=== PATIENT | female | born 1955 | race Caucasian/White ===

== ENCOUNTER 2022-04-05 10:32 | Outpatient (CLI) | payer MEDICARE, OTHER | END 2022-04-05 10:33 | disposition home or self-care (01) | LOC: CSHCP 10:32 | PROVIDERS: ATTEND Internal Medicine Critical Care Medicine | DX: R91.8 Other nonspecific abnormal finding of lung field (principal); J44.9 Chronic obstructive pulmonary disease, unspecified | CPT/HCPCS: 94060; 94726; 94729; 94760 ==

== ENCOUNTER 2022-05-24 09:03 | Outpatient (CLI) | payer OTHER ==
[~2022-05-24 09:03] MED LIST: Magnevist 469MG/ML 20 ML VIAL ONE
== END 2022-05-24 09:04 | disposition home or self-care (01) ==
LOC: CSHMRI 09:03
PROVIDERS: ATTEND Radiology Radiation Oncology
DX: C34.11 Malignant neoplasm of upper lobe, right bronchus or lung (principal); I69.398 Other sequelae of cerebral infarction; G93.89 Other specified disorders of brain
CPT/HCPCS: 70553

== ENCOUNTER 2022-05-29 17:59 | Inpatient (IN) | payer OTHER ==
[2022-05-29 18:09] VITALS: BMI 22.0
[2022-05-29] MEDS ORDERED: Morphine 4 MG/ML VIAL SLOW IVP SCH (19:15)
[2022-05-29] MEDS: Sodium Chloride 0.9% 1,000 ML IV SCH (20:00)
[2022-05-29] MEDS ORDERED: Communication Order-Pharmacy FS ONE (20:59)
[2022-05-29] MEDS ORDERED: Melatonin 3 MG TAB PO SCH (21:00)
[2022-05-29] MEDS ORDERED: traZODone HCl 50 MG TAB PO SCH (21:00)
[2022-05-29] MEDS ORDERED: Mirtazapine 15 MG TAB PO SCH (21:00)
[2022-05-29] MEDS ORDERED: Acetaminophen 325 MG TAB PO PRN (21:02)
[2022-05-29] MEDS ORDERED: Ondansetron ODT 4 MG TAB PO PRN (21:03)
[2022-05-29] MEDS ORDERED: Senokot S 8.6-50 MG TAB PO PRN (21:03)
[2022-05-29] MEDS ORDERED: Ondansetron PF 4 MG/2 ML Vial IVP PRN (21:03)
[2022-05-29] MEDS ORDERED: Ipratropium/Albuterol 3 ML NEB NEB PRN (21:09)
[2022-05-29] MEDS ORDERED: cefTRIAXone\\ROCEPHIN 1 GM in Sodium Chloride 0.9% 100 ML IVPB SCH (21:15)
[2022-05-29] MEDS ORDERED: HYDROcodone/Acetaminophen 10/325 mg Tablet PO SCH (21:15)
[2022-05-29] MEDS: Morphine ER 15 MG TAB PO SCH (22:12)
[2022-05-30 04:37] LABS: #Basophils 0.1 10x3/uL (0.0-0.2); #Eosinphils 0.1 10x3/uL (0.0-0.5); #Monocytes 0.9 10x3/uL (0.0-1.1); #Neutrophils 7.2 10x3/uL (1.5-8.4); %Basophils 0.6 % (0.0-2.0); %Eosinophils 0.5 % (0.0-6.0); %Lymphocytes 23.4 % (18.0-47.0); %Monocytes 8.5 % (0.0-10.0); %Neutrophils 66.6 % (40.0-75.0); Hemoglobin 11.6 g/dL (12.0-15.5); Mean Corpuscular HGB CONC 32.4 g/dL (32.0-36.0); Mean Corpuscular Hemoglobin 32.4 pg (27.0-33.0); Mean Platelet Volume 9.2 fl (7.4-10.4); Platelet Count 279 10x3/uL (150-450); RBC Distribution Width 12.8 % (11.5-14.5); Red Blood Cell (RBC) Count 3.58 10x6/uL (3.90-5.03); White Blood Cell (WBC) Count 10.7 10x3/uL (3.5-10.5)
[2022-05-30 04:51] LABS: Anion Gap 12 mmol/L (10-20); BUN (Urea Nitrogen) 7 mg/dL (9.8-20.1); Calc. Creatinine Clearance 80 mL/min (70-130); Calcium 8.7 mg/dL (7.8-10.44); Carbon Dioxide 22 mmol/L (23-31); Chloride 112 mmol/L (98-107); Estimated GFR 91; Glucose 99 mg/dL (80-115); Magnesium 2.2 mg/dL (1.6-2.6); Potassium 3.9 mmol/L (3.5-5.1); Sodium 142 mmol/L (136-145)
[2022-05-30] MEDS: Sodium Chloride 0.9% 1,000 ML IV SCH (05:20)
[2022-05-30] MEDS ORDERED: Levothyroxine Sodium 50 MCG TAB PO SCH (06:00)
[2022-05-30] MEDS ORDERED: Potassium Chloride 10 MEQ TAB PO SCH (08:00)
[2022-05-30] MEDS: Morphine ER 15 MG TAB PO SCH (08:03)
[2022-05-30] MEDS ORDERED: Polyethylene Glycol 3350 17 GM Packet PO SCH (09:00)
[2022-05-30] MEDS ORDERED: HYDROcodone/Acetaminophen 10/325 mg Tablet PO SCH (09:00)
[2022-05-30] MEDS ORDERED: cefTRIAXone\\ROCEPHIN 2 GM in Sodium Chloride 0.9% 100 ML IVPB SCH (12:00)
[2022-05-30 12:28] VITALS: TEMP 98.9
[2022-05-30 12:29] VITALS: BP 128/76
[2022-05-30] MEDS ORDERED: Rosuvastatin 20 MG TAB PO SCH (21:00)
== END 2022-05-30 12:30 | disposition home or self-care (01) | DRG 872 ==
LOC: CSHTELE 17:59
PROVIDERS: ADMIT Internal Medicine; ATTEND Internal Medicine
DX: A41.9 Sepsis, unspecified organism (principal); C34.11 Malignant neoplasm of upper lobe, right bronchus or lung; N28.89 Other specified disorders of kidney and ureter; I25.10 Atherosclerotic heart disease of native coronary artery without angina pectoris; F17.210 Nicotine dependence, cigarettes, uncomplicated; Z20.822 Contact with and (suspected) exposure to COVID-19; E03.9 Hypothyroidism, unspecified; I25.2 Old myocardial infarction; Z86.16 Personal history of COVID-19; Z90.710 Acquired absence of both cervix and uterus; Z98.890 Other specified postprocedural states; Z86.73 Personal history of transient ischemic attack (TIA), and cerebral infarction without residual deficits; Z88.1 Allergy status to other antibiotic agents; Z79.899 Other long term (current) drug therapy
CPT/HCPCS: 36416; 71045; 80048; 83735; 85025; J0696; J1650; J2270; J3490; J7050; U0003; U0005